=== PATIENT | female | born 1955 | race Caucasian/White ===

== ENCOUNTER 2016-10-24 12:49 | Outpatient (RCR) | payer BC | END 2016-11-26 10:30 | disposition home or self-care (01) | LOC: PT 12:49 | DX: Z47.1 Aftercare following joint replacement surgery (principal); Z96.611 Presence of right artificial shoulder joint ==

== ENCOUNTER → 2017-09-08 | Outpatient (CLI) | payer BC | LOC: MAMMO 09:45 → RAD 10:00 | DX: Z12.31 Encounter for screening mammogram for malignant neoplasm of breast (principal) ==

== ENCOUNTER → 2019-03-23 | Outpatient (CLI) | payer MEDICARE | LOC: MAMMO 10:37 | DX: Z12.31 Encounter for screening mammogram for malignant neoplasm of breast (principal) ==

== ENCOUNTER → 2020-04-16 | Outpatient (CLI) | payer MEDICARE | LOC: RAD 09:48 | DX: K76.0 Fatty (change of) liver, not elsewhere classified (principal); R05 Cough | CPT/HCPCS: Q9967 ==

== ENCOUNTER → 2020-07-31 | Outpatient (CLI) | payer MEDICARE | LOC: LAB 16:19 | DX: R53.83 Other fatigue (principal); Z20.828 Contact with and (suspected) exposure to other viral communicable diseases ==

== ENCOUNTER → 2020-08-03 | Outpatient (CLI) | payer MEDICARE | LOC: RAD 14:17 | DX: R51.9 Headache, unspecified (principal) ==

== ENCOUNTER → 2020-08-08 | Outpatient (CLI) | payer MEDICARE ==
[2020-08-08 12:08] LABS: EOS # 0.1 (0.04-0.40); EOS % 1.3 % (1.0-5.0); HEMATOCRIT 47.9 % (37.0-47.0); HEMOGLOBIN 16.4 g/dL (12.5-16.0); LYMPH# 2.3 (1.50-4.00); MEAN CELL VOLUME 90 fl (78-100); MEAN CORPUSCULAR HEMOGLOBIN 31 pg (27-31); MEAN CORPUSCULAR HGB CONC 34 g/dL (33-37); MEAN PLATELET VOLUME 10.2 fl (7.4-10.4); MONO # 0.9 (0.20-0.80); NEU # 5.6 (1.40-6.50); PLATELET COUNT 369 K/mm3 (130-400); RED BLOOD COUNT 5.32 M/mm3 (4.10-5.30); RED CELL DISTRIBUTION WIDTH 13.6 % (11.5-14.5)
[2020-08-08 12:15] LABS: POTASSIUM 4.3 mmol/L (3.5-5.1)
[2020-08-08 12:16] LABS: CALCIUM 9.4 mg/dL (8.3-10.5)
[2020-08-08 13:01] LABS: ERYTHROCYTE SEDIMENTATION RATE 6 mm/hr (0-30)
== END ==
LOC: LAB 11:50
PROVIDERS: Family Medicine
DX: R51.9 Headache, unspecified (principal)

== ENCOUNTER → 2020-08-29 | Outpatient (CLI) | payer MEDICARE | LOC: MAMMO 08:59 | DX: Z12.31 Encounter for screening mammogram for malignant neoplasm of breast (principal); N63.10 Unspecified lump in the right breast, unspecified quadrant; N63.20 Unspecified lump in the left breast, unspecified quadrant ==

== ENCOUNTER → 2021-08-21 | Outpatient (CLI) | payer MEDICARE | LOC: MAMMO 15:11 | DX: Z12.31 Encounter for screening mammogram for malignant neoplasm of breast (principal) ==

== ENCOUNTER 2022-01-06 12:40 | Emergency (ER) | payer OTHER, MEDICARE ==
[2022-01-06] MEDS ORDERED: ALBUTEROL2.5 MG/3 M IH (12:44)
[2022-01-06] MEDS ORDERED: ADVAIR DISKUS1 DS2 IH (12:44)
[2022-01-06] MEDS ORDERED: PREGABALIN100 MG PO (12:45)
[2022-01-06] MEDS ORDERED: ELIQUIS5 MG PO (12:45)
[2022-01-06] MEDS ORDERED: ZOLPIDEM TART10 MG PO (12:45)
[2022-01-06 13:28] LABS: BASO # 0.01 K/mm3 (0.02-0.10); EOS # 0.02 K/mm3 (0.04-0.40); EOS % 0.1 % (1.0-5.0); HEMATOCRIT 45.7 % (37.0-47.0); HEMOGLOBIN 15.4 g/dL (12.5-16.0); LYMPH# 1.37 K/mm3 (1.50-4.00); MEAN CELL VOLUME 91 fl (78-100); MEAN CORPUSCULAR HEMOGLOBIN 31 pg (27-31); MEAN CORPUSCULAR HGB CONC 34 g/dL (33-37); MEAN PLATELET VOLUME 9.7 fl (7.4-10.4); MONO # 0.87 K/mm3 (0.20-0.80); NEU # 11.55 K/mm3 (1.40-6.50); PLATELET COUNT 288 K/mm3 (130-400); RED BLOOD COUNT 5.02 M/mm3 (4.10-5.30); RED CELL DISTRIBUTION WIDTH 13.1 % (11.5-14.5); WHITE BLOOD COUNT 13.9 K/mm3 (4.8-10.8)
[2022-01-06 13:41] LABS: ALBUMIN 3.9 g/dL (3.4-4.8); SODIUM 141 mmol/L (136-145)
[2022-01-06 13:42] LABS: CALCIUM 9.5 mg/dL (8.3-10.5)
[2022-01-06 13:43] LABS: GLUCOSE 123 mg/dL (65-105)
[2022-01-06 13:44] LABS: TOTAL PROTEIN 6.9 g/dL (6.2-8.1)
[2022-01-06 13:45] LABS: CARBON DIOXIDE 25 mmol/L (23-31); TOTAL BILIRUBIN 0.5 mg/dL (0.2-1.2)
[2022-01-06 13:49] LABS: AST-SGOT 25 U/L (5-34)
[2022-01-06 13:50] LABS: ALT/SGPT 35 U/L (0-55)
[2022-01-06 14:35] LABS: TROPONIN-I < 0.030 ng/mL (<0.030)
[2022-01-06] MEDS ORDERED: NORCO 325 MG-51 TA1 PO ×2 (15:36→15:37)
[2022-01-06] MEDS ORDERED: CYCLOBENZ5 MG PO (15:36)
[2022-01-06 15:56] LABS: PH-URINE 6.5 (5.0 - 8.0); URINE APPEARANCE CLEAR; URINE COLOR YELLOW; URINE PROTEIN(semi-quant) NEGATIVE (NEGATIVE)
[2022-01-06 15:57] LABS: URINE BILIRUBIN NEGATIVE (NEGATIVE); URINE BLOOD NEGATIVE (NEGATIVE); URINE GLUCOSE NEGATIVE (NEGATIVE); URINE KETONE NEGATIVE (NEGATIVE); URINE LEUKOCYTE ESTERASE NEGATIVE (NEGATIVE); URINE NITRATE NEGATIVE (NEGATIVE); URINE UROBILINOGEN NORMAL (NORMAL); URINE WBC 0-1 /hpf (0-3)
[2022-01-06 16:25] VITALS: BP 149/73
== END 2022-01-06 16:25 | disposition home or self-care (01) ==
LOC: ED 12:40
PROVIDERS: Nurse Practitioner
DX: M62.838 Other muscle spasm (principal); R51.9 Headache, unspecified; R07.89 Other chest pain; V49.40XA Driver injured in collision with unspecified motor vehicles in traffic accident, initial encounter; Y92.410 Unspecified street and highway as the place of occurrence of the external cause
CPT/HCPCS: J1885; Q9967

== ENCOUNTER 2022-02-05 09:43 | Outpatient (RCR) | payer OTHER, MEDICARE ==
[~2022-02-05 09:43] MED LIST: ADVAIR DISKUS1 DS2 IH; ALBUTEROL2.5 MG/3 M IH; CYCLOBENZ5 MG PO; ELIQUIS5 MG PO; NORCO 325 MG-51 TA1 PO; PREGABALIN100 MG PO; ZOLPIDEM TART10 MG PO
== END 2022-02-27 | disposition home or self-care (01) ==
LOC: PT
DX: M25.511 Pain in right shoulder (principal)

== ENCOUNTER 2022-03-04 10:00 | Outpatient (RCR) | payer OTHER, MEDICARE | END 2022-03-30 | disposition home or self-care (01) | LOC: PT | DX: M25.519 Pain in unspecified shoulder (principal) ==

== ENCOUNTER 2022-07-16 08:22 | Outpatient (RCR) | payer MEDICARE | END 2022-07-30 | disposition home or self-care (01) | LOC: PT | DX: Z96.641 Presence of right artificial hip joint (principal) ==

== ENCOUNTER → 2023-09-21 | Day surgery (SDC) | payer MEDICARE | LOC: MSO 09:09 | DX: Z12.11 Encounter for screening for malignant neoplasm of colon (principal); K57.30 Diverticulosis of large intestine without perforation or abscess without bleeding; I48.91 Unspecified atrial fibrillation; Z79.01 Long term (current) use of anticoagulants | CPT/HCPCS: 00812; J2704; J3010; J7120 ==

== ENCOUNTER → 2024-05-09 | Outpatient (CLI) | payer MEDICARE | LOC: RAD 10:47 | DX: M79.672 Pain in left foot (principal) ==

== ENCOUNTER 2024-06-30 05:25 | Emergency (ER) | payer MEDICARE ==
[~2024-06-30] VITALS: Ht 172.7 cm; Wt 86.4 kg
[2024-06-30] MEDS ORDERED: TIADYLT ER240 MG PO (05:50)
[2024-06-30] MEDS ORDERED: MELOXICAM7.5 MG PO (05:50)
[2024-06-30] MEDS ORDERED: LISINOPRIL10 MG PO (05:50)
[2024-06-30 06:34] VITALS: BP 193/125
== END 2024-06-30 06:36 | disposition home or self-care (01) ==
LOC: ED 05:25
DX: F45.8 Other somatoform disorders (principal); I48.91 Unspecified atrial fibrillation; T45.516A Underdosing of anticoagulants, initial encounter; Z91.138 Patient's unintentional underdosing of medication regimen for other reason

== ENCOUNTER → 2024-07-14 | Outpatient (CLI) | payer MEDICARE ==
[~2024-07-14] MED LIST changes: +LISINOPRIL10 MG PO; +MELOXICAM7.5 MG PO; +TIADYLT ER240 MG PO
== END ==
LOC: MAMMO 14:00
DX: Z12.31 Encounter for screening mammogram for malignant neoplasm of breast (principal)

== ENCOUNTER → 2024-07-19 | Outpatient (CLI) | payer MEDICARE | LOC: MAMMO 08:48 | DX: R92.8 Other abnormal and inconclusive findings on diagnostic imaging of breast (principal) ==